=== PATIENT | male | born 1995 | race Caucasian/White ===

== ENCOUNTER 2021-06-15 17:27 | Emergency (ER) | payer MEDICAID ==
[~2021-06-15] VITALS: Ht 170.2 cm; Wt 72.6 kg
--- NOTE | 2021-06-15 17:51 | NUR ---
PT ALERT OX3, DENIES CHEST PAIN OR HEADACHE AT THIS TIME. STATES HE SMOKES 2 CIGARETTES A DAY. NO DIFFICULTIES NOTED AT THIS TIME. WILL CONTINUE TO MONITOR.
--- NOTE | 2021-06-15 19:44 | NUR ---
Patient discharged to home in stable condition. Written and verbal after care instructions given. Patient verbalizes understanding of instruction. Pt ambulatory with a steady gait
[2021-06-15 20:06] VITALS: BP 124/80
== END 2021-06-15 20:07 | disposition home or self-care (01) ==
LOC: ER 17:59
DX: J06.9 Acute upper respiratory infection, unspecified (principal); Z20.822 Contact with and (suspected) exposure to COVID-19; R94.31 Abnormal electrocardiogram [ECG] [EKG]; R01.1 Cardiac murmur, unspecified
CPT/HCPCS: 36415; 71045; 84484; 87426; 93005; 99284; C9803